=== PATIENT | male | born 1990 | race Caucasian/White ===

== ENCOUNTER → 2021-11-07 | Outpatient (CLI) | payer OTHER | LOC: KOH-I 11-06 09:30 | DX: J32.0 Chronic maxillary sinusitis (principal) | CPT/HCPCS: 70486 ==

== ENCOUNTER → 2021-12-19 | Outpatient (CLI) | payer OTHER ==
[~2021-12-19] MED LIST: BUSPIRONE HCL10 MG PO; HYDROCODONE-AC1 EACH PO; LISINOPRIL20 MG PO; PAROXETINE HCL40 MG PO
[2021-12-19 14:01] LABS: BUN/CREATININE RATIO 20 (0-10)
== END ==
LOC: OPSV2 12:29
PROVIDERS: Otolaryngology
DX: Z01.812 Encounter for preprocedural laboratory examination (principal)
CPT/HCPCS: 36415; 80048

== ENCOUNTER → 2021-12-23 | Day surgery (SDC) | payer OTHER ==
[~2021-12-23] VITALS: Ht 195.6 cm; Wt 199.1 kg
== END | disposition home or self-care (01) ==
LOC: OR 06:11
DX: J32.9 Chronic sinusitis, unspecified (principal); J33.9 Nasal polyp, unspecified; J34.3 Hypertrophy of nasal turbinates; J34.2 Deviated nasal septum; I10 Essential (primary) hypertension; K21.9 Gastro-esophageal reflux disease without esophagitis; Z88.8 Allergy status to other drugs, medicaments and biological substances; Z79.899 Other long term (current) drug therapy
CPT/HCPCS: J1100; J1170; J2001; J2250; J2405; J2704; J3010